=== PATIENT | male | born 1990 | race Caucasian/White ===

== ENCOUNTER → 2018-10-05 | Outpatient (CLI) | payer OTHER ==
--- NOTE | 2018-10-05 16:46 | Diagnostic Imaging Report ---
PROCEDURE: CT neck soft tissue without contrast. TECHNIQUE: Multiple contiguous axial images were obtained through the neck without the use of intravenous contrast. Auto Exposure Controls were utilized during the CT exam to meet ALARA standards for radiation dose reduction. INDICATION: Sore throat. COMPARISON: No prior studies are available for comparison. FINDINGS: The study is limited without intravenous contrast. Visualized intracranial structures are unremarkable. Posterior nasopharynx and oropharynx are unremarkable. The parapharyngeal fat planes are preserved. Epiglottis and larynx are unremarkable. No definite thyroid mass is detected. Submandibular and parotid glands are symmetric bilaterally. No inflammatory process is seen. Normal sized cervical lymph nodes are present bilaterally. There are no fluid collections. IMPRESSION: Unremarkable noncontrast CT soft tissue neck study. Dictated by: Dictated on workstation # [id number]
== END ==
LOC: RAD 14:45
PROVIDERS: ATTEND Nurse Practitioner Family
DX: J02.9 Acute pharyngitis, unspecified (principal)
CPT/HCPCS: 70490

== ENCOUNTER → 2022-02-28 | Outpatient (CLI) | payer OTHER ==
--- NOTE | 2022-02-28 14:29 | Diagnostic Imaging Report ---
INDICATION: Right wrist pain and numbness. TIME OF EXAM: 11:06 a.m. FINDINGS: Three views of the right wrist were obtained. The distal radius and ulna are intact. Carpal bones are intact. Visualized metacarpals are intact. No fractures are seen. IMPRESSION: No acute bony abnormality is detected. Dictated by: Dictated on workstation # [id number]
--- NOTE | 2022-02-28 14:29 | Diagnostic Imaging Report ---
INDICATION: Right hand pain and numbness. TIME OF EXAM: 11:04 a.m. FINDINGS: Three views of the right hand were obtained. Metacarpals appear intact. There is a healed fracture of the distal fifth metacarpal. Phalanges are intact. No acute fractures are seen. IMPRESSION: No acute bony abnormality is detected. Dictated by: Dictated on workstation # [id number]
--- NOTE | 2022-02-28 14:32 | Diagnostic Imaging Report ---
INDICATION: Right arm pain and numbness. TIME OF EXAM: 11:08 a.m. FINDINGS: Two views of the right forearm were obtained. There is normal alignment at the elbow and wrist. The radius and ulna are intact. No fractures are seen. IMPRESSION: No acute bony abnormality is detected. Dictated by: Dictated on workstation # [id number]
== END ==
LOC: RAD 10:28
PROVIDERS: ATTEND Nurse Practitioner Family
DX: M25.531 Pain in right wrist (principal); R20.0 Anesthesia of skin
CPT/HCPCS: 73090; 73110; 73130